=== PATIENT | female | born 1970 | race Asian ===

== ENCOUNTER 2016-07-20 00:30 | Emergency (ER) | payer OTHER ==
[2016-07-20] MEDS ORDERED: diPHENhydraMINE IV* 50 MG/ML 1 ml VIAL (BENADRYL) IV ONE (01:03)
[2016-07-20] MEDS ORDERED: Dexamethasone IV* 4 MG/ML 1 ML (4 MG) IM ONE (01:03)
[2016-07-20] MEDS ORDERED: Dexamethasone IV* 4 MG/ML 1 ML (4 MG) IV SLOW PU ONE (01:14)
--- NOTE | 2016-07-20 01:14 | ED ---
Allergic Reaction/Systemic - HPI Summary HPI Summary: Patient presents to ED with CC of diffuse hives since a few hours ago. She had a similar episode 2 weeks ago while in [place]. Denies detergent, soaps, lotions changes or any new clothing. She did not have any medicine changes and denies any known allergies. She had a new food item a few days ago, but did not have a reaction after. She denies known bug bites. The itching began while she was lying in bed behind the legs, and now has diffusely spread to the rest of the body. She has not tried anything for the itching. She denies throat pain, difficulty breathing or other symptoms. She is otherwise healthy. - History of Current Complaint Chief Complaint: EDRashSkinAbscess Time Seen by Provider: 07/20/16 00:47 Hx Obtained From: Patient Onset/Duration: Sudden Onset Timing: Constant Severity Initially: Moderate Severity Currently: Moderate Pain Intensity: 0 Pain Scale Used: 0-10 Numeric Character: Swelling, Pruritus, Hives Aggravating Factor(s): Nothing Alleviating Factor(s): Nothing Associated Signs And Symptoms: Positive: Negative - Related Hx Possible Reaction To: Unknown - Allergies/Home Medications Allergies/Adverse Reactions: Allergies Allergy/AdvReac Type Severity Reaction Status Date / Time No Known Allergies Allergy Verified 06/19/14 08:21 PMH/Surg Hx/FS Hx/Imm Hx Previously Healthy: Yes Sensory History: Reports: Hx Contacts or Glasses - CONTACTS; DAY OF SURGERY GLASSES Opthamlomology History: Reports: Hx Contacts or Glasses - CONTACTS; DAY OF SURGERY GLASSES Psychiatric History: Reports: Hx Anxiety - SEES PSYCHOLOGIST, MILD ANXIETY, NO MEDS - Cancer History Hx Chemotherapy: No Hx Radiation Therapy: No - Surgical History Surgery Procedure, Year, and Place: 1989 FRACTURED NASAL [facility] Hx Anesthesia Reactions: No Infectious Disease History: No Infectious Disease History: Reports: Hx Hepatitis - LIVER FUNCTION GOOD,HEP. B [employer]RI[employer] SINCE TEENAGER, ON [employer]READ Denies: Traveled Outside the [place] in Last 30 Days - Social History Occupation: Employed Full-time Lives: With Family Alcohol Use: Rare Alcohol Amount: 1-2 DRINKS EVERY FEW MONTHS Hx Substance Use: No Substance Use Type: Reports: None Hx Tobacco Use: No Smoking Status (MU): Never Smoked Tobacco Have You Smoked in the Last Year: No Review of Systems Constitutional: Negative ENT: Negative Cardiovascular: Negative Respiratory: Negative Musculoskeletal: Negative Positive: Other - urticarial rash - diffuse Neurological: Negative Psychological: Normal All Other Systems Reviewed And Are Negative: Yes Physical Exam Triage Information Reviewed: Yes Vital Signs On Initial Exam: Initial Vitals Temp Pulse Resp BP Pulse Ox 98.7 F 61 16 112/75 100 07/20/16 00:35 07/20/16 00:35 07/20/16 00:35 07/20/16 00:35 07/20/16 00:35 Vital Signs Reviewed: Yes Appearance: Positive: Well-Appearing Skin: Positive: Warm, Other - diffuse urticarial rash Head/Face: Positive: Normal Head/Face Inspection Eyes: Positive: EOMI, MERON, Conjunctiva Clear ENT: Positive: Pharynx normal Neck: Positive: Supple, No Lymphadenopathy Respiratory/Lung Sounds: Positive: Clear to Auscultation, Breath Sounds Present Cardiovascular: Positive: Normal, RRR, Pulses are Symmetrical in both Upper and Lower Extremities Musculoskeletal: Positive: Normal, Strength/ROM Intact Neurological: Positive: Sensory/Motor Intact, Alert, Oriented to Person Place, Time Psychiatric: Positive: Normal AVPU Assessment: Alert - Preston Coma Scale Best Eye Response: 4 - Spontaneous Best Motor Response: 6 - Obeys Commands Best Verbal Response: 5 - Oriented Diagnostics - Vital Signs Vital Signs Temp Pulse Resp BP Pulse Ox 07/20/16 01:00 74 98 07/20/16 00:53 68 98 07/20/16 00:40 98.7 F 61 16 112/78 100 07/20/16 00:35 98.7 F 61 16 112/75 100 - Laboratory Lab Statement: Any lab studies that have been ordered have been reviewed, and results considered in the medical decision making process. Allergic Reaction Course/Dx - Course Course Of Treatment: Patient with diffuse urticarial rash of unknown source. Patient given 8mg decadron, 50mg benadryl and triamcinalone ointment with relief. No signs of anaphylactic reaction. Patient given return precautions. Ok for discharge. - Diagnoses Differential Diagnosis/HQI/PQRI: Positive: Airway Obstruction, Anaphylaxis, Bronchospasm, Urticaria Provider Diagnoses: Allergic reaction Discharge - Discharge Plan Condition: Stable Disposition: HOME Patient Education Materials: Urticaria (ED), Allergies (ED) Referrals: Armando Nguyen MD [Primary Care Provider] - Additional Instructions: Take Benadryl for any itching - 50mg at bedtime Take a Claritin or Zyrtec during the day if itching occurs Use the ointment as needed If you develop any worsening symptoms such as throat closing or feeling shortness of breath, come back to ED immediately.
[2016-07-20] MEDS ORDERED: Triamcinolone 0.5% OINT * 15 GM TUBE TOPICAL ONE (02:10)
[2016-07-20 02:51] VITALS: BP 89/54
[2016-07-20] MEDS ORDERED: Triamcinolone 0.5% OINT * 15 GM TUBE TOPICAL SCH (09:00)
== END 2016-07-20 02:45 | disposition home or self-care (01) ==
LOC: ED 00:30
DX: T78.40XA Allergy, unspecified, initial encounter (principal); L50.9 Urticaria, unspecified; X58.XXXA Exposure to other specified factors, initial encounter; F41.9 Anxiety disorder, unspecified; Z98.49 Cataract extraction status, unspecified eye
CPT/HCPCS: 96374; 96375; 99283; A9270-GY; J1100; J1200